=== PATIENT | male | born 1990 | race Caucasian/White ===

== ENCOUNTER 2022-12-14 22:26 | Emergency (ER) | payer MEDICAID ==
[~2022-12-14] VITALS: Ht 167.6 cm; Wt 86.2 kg
[2022-12-14 22:26] VITALS: BP 140/85; PULSE 98; RESP 17; TEMP 98.5; O2SAT 97
[2022-12-14] MEDS ORDERED: NALO4SPR NS (23:20)
== END 2022-12-14 23:20 | disposition left against medical advice (07) ==
LOC: MED 22:26
DX: F19.90 Other psychoactive substance use, unspecified, uncomplicated (principal); T40.2X5A Adverse effect of other opioids, initial encounter; T40.415A Adverse effect of fentanyl or fentanyl analogs, initial encounter; F31.9 Bipolar disorder, unspecified; Z79.899 Other long term (current) drug therapy; Y92.89 Other specified places as the place of occurrence of the external cause
CPT/HCPCS: 99283